=== PATIENT | male | born 1965 | race Caucasian/White ===

== ENCOUNTER 2022-06-18 08:12 | Emergency (ER) | payer OTHER ==
[~2022-06-18] VITALS: Ht 182.9 cm; Wt 104.3 kg
== END 2022-06-18 11:18 | disposition home or self-care (01) ==
LOC: ER 08:12
DX: S61.211A Laceration without foreign body of left index finger without damage to nail, initial encounter (principal); Z23 Encounter for immunization; W22.8XXA Striking against or struck by other objects, initial encounter; Y99.0 Civilian activity done for income or pay
CPT/HCPCS: 73130; 90714